=== PATIENT | male | born 1985 | race African-American/Black ===

== ENCOUNTER 2017-03-13 12:52 | Emergency (ER) | payer SELFPAY ==
[~2017-03-13] VITALS: Ht 170.2 cm; Wt 77.1 kg
[2017-03-13 13:01] VITALS: BP 145/85
--- NOTE | 2017-03-13 13:37 | RAD ---
Indication: Cough and weakness. Time of exam 1317 hours. FINDINGS: The heart size is normal. The lungs are clear. No pleural effusion or pneumothorax is identified. The pulmonary vascularity is normal. IMPRESSION: No acute abnormality detected.
--- NOTE | 2017-03-13 14:17 | PHYS DOC ---
Past Medical History Past Medical History: GERD Past Surgical History: Knee Replacement Additional Past Surgical Histo: R KNEE Alcohol Use: Rarely Drug Use: None Adult General Chief Complaint Chief Complaint: COUGH HPI HPI Patient is a 32 year old male with history of acid reflex presents today with a productive cough, nasal congestion, bilateral ear pain, that began 8 days ago. Patient states she is from [place] and is visiting in town. Patient denies any fever. Review of Systems Review of Systems Constitutional: See history of present illness Eyes: Denies change in visual acuity, redness, or eye pain [] HENT: Bilateral ear pain, nasal congestion and sore throat [] Respiratory: Productive cough Cardiovascular: No additional information not addressed in HPI [] GI: Denies abdominal pain, nausea, vomiting, bloody stools or diarrhea [] : Denies dysuria or hematuria [] Musculoskeletal: Denies back pain or joint pain [] Integument: Denies rash or skin lesions [] Neurologic: Denies headache, focal weakness or sensory changes [] Endocrine: Denies polyuria or polydipsia [] Allergies Allergies Allergies Coded Allergies Type Severity Reaction Last Updated Verified iodine Allergy Intermediate Rash 03/13/17 Yes Physical Exam Physical Exam Constitutional: Well developed, well nourished, no acute distress, non-toxic appearance. [] HENT: Normocephalic, atraumatic, bilateral external ears normal, oropharynx moist, no oral exudates, nose normal. [] Eyes: PERRLA, EOMI, conjunctiva normal, no discharge. [] Neck: Normal range of motion, no tenderness, supple, no stridor. [] Cardiovascular:Heart rate regular rhythm, no murmur [] Lungs & Thorax: Bilateral breath sounds clear to auscultation [] Abdomen: Bowel sounds normal, soft, no tenderness, no masses, no pulsatile masses. [] Skin: Warm, dry, no erythema, no rash. [] Back: No tenderness, no CVA tenderness. [] Extremities: No tenderness, no cyanosis, no clubbing, ROM intact, no edema. [] Neurologic: Alert and oriented X 3, normal motor function, normal sensory function, no focal deficits noted. [] Psychologic: Affect normal, judgement normal, mood normal. [] Current Patient Data Vital Signs Vital Signs Date Time Temp Pulse Resp B/P (MAP) Pulse Ox O2 Delivery O2 Flow Rate FiO2 6/3/17 13:01 98.5 102 20 95 Room Air 98.5 EKG EKG [] Radiology/Procedures Radiology/Procedures [] Course & Med Decision Making Course & Med Decision Making Pertinent Labs and Imaging studies reviewed. (See chart for details) This is a well-appearing 32-year-old male patient who presents today with bilateral ear pain cough sore throat and nasal congestion for 8 days. Patient is in no distress. Patient denies any fever. Denies any history of smoking. Chest x-ray interpreted by radiologist is negative for any acute findings. Informed patient considering he is from [place] his symptoms could be allergy related or viral bronchitis and URI. Patient asked what i will prescribe for him. I recommended albuterol inhaler,Tessalon Perles prednisone and over-the- counter decongestants. Patient states he cannot afford Tessalon Perles. Informed him he can take anything [id number]. I offered him a albuterol inhaler. He stated he cannot afford albuterol inhaler either. Informed him he can use anything [id number]. Informed him he does not have a bacterial infection right now his symptoms are viral any [id number] medications will help. Patient appeared to lean towards having a prescription cough syrup. He stood up and left without his papers Dragon Disclaimer Dragon Disclaimer This electronic medical record was generated, in whole or in part, using a voice recognition dictation system. 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
[2017-03-14 05:24] LABS: NEGATIVE OBC STREP NEG; POSITIVE OBC STREP POS
== END 2017-03-13 13:57 | disposition home or self-care (01) ==
LOC: ER 12:52
DX: J06.9 Acute upper respiratory infection, unspecified (principal); J20.8 Acute bronchitis due to other specified organisms; H92.03 Otalgia, bilateral; K21.9 Gastro-esophageal reflux disease without esophagitis
CPT/HCPCS: 71020; 87070; 87880; 99285-25